=== PATIENT | female | born 1950 | race African-American/Black ===

== ENCOUNTER 2016-11-22 21:51 | Observation (INO) ==
[2016-11-22 23:09] LABS: MANUAL DIFF NEEDED? NO
[2016-11-22 23:11] LABS: BASO% 0.5 % (0.0-0.8); EOS# 0.25 X1000 (0.0-0.7); EOS% 3.4 % (0.0-10.0); HEMATOCRIT 39.6 % (37.0-47.0); HEMOGLOBIN 13.1 g/dL (12.0-16.0); IMM GRAN# 0.02 X1000 (0.0-0.04); IMM GRAN% 0.3 % (0.0-0.5); LYMPH# 1.36 X1000 (1.2-3.4); LYMPH% 18.3 % (20.5-51.1); MCH 31.4 PG (27-31); MCHC 33.1 g/dL (33-37); MONO# 0.47 X1000 (0.11-0.59); MONO% 6.3 % (1.7-9.3); MPV 10.9 FL (7.4-10.4); NEUT% 71.2 % (42.2-75.2); PLT 342 X1000 (130-400); RBC 4.17 XMIL (4.2-5.4)
[2016-11-22 23:26] LABS: ALBUMIN 4.2 g/dL (3.5-5.0); CALCIUM 8.3 mg/dL (8.8-10.2); POTASSIUM 3.6 mmol/L (3.5-5.1); TOTAL BILIRUBIN 0.33 mg/dL (0.20-1.00); TOTAL PROTEIN 7.6 g/dL (6.3-8.3)
--- NOTE | 2016-11-22 23:43 | PROVIDER DOCUMENTATION ---
This chart was entered by Alyce Hooks Scribe, acting as scribe for Rudolph Eid MD. HPI-Syncope/Dizziness - General Chief Complaint: Near Syncope Stated Complaint: syncope Time Seen by Provider: 11/22/16 21:59 Source: patient Allergies/Adverse Reactions: Patient Allergies Allergy/AdvReac Type Severity Reaction Status Date / Time egg Allergy Severe SWELLING Verified 11/22/16 23:02 Penicillins Allergy Mild ITCHING Verified 11/22/16 23:02 Sulfa (Sulfonamide Allergy Mild ITCHING Verified 11/22/16 23:02 Antibiotics) prednisone AdvReac Mild "softens Verified 11/22/16 23:02 bones" Home Medications: Home Medication List Medication Instructions Recorded Confirmed Last Taken Type Aspirin 325 mg PO QAM 12/15/12 11/19/16 11/18/16 09:00 History Calcium Carbonate/Vitamin D3 1 each PO TID 12/15/12 11/19/16 11/18/16 19:00 History [Calcarb 600 W-Vitamin D Tab] Carvedilol [Coreg] 25 mg PO BID 12/15/12 11/19/16 11/18/16 19:00 History Citalopram [Celexa] 20 mg PO QHS 12/15/12 11/19/16 11/18/16 19:00 History Clopidogrel [Plavix] 75 mg PO QAM 12/15/12 11/19/16 11/18/16 09:00 History Famotidine 40 mg PO BID 12/15/12 11/19/16 11/18/16 19:00 History Ferrous Sulfate 325 mg PO TID 12/15/12 11/19/16 11/18/16 19:00 History Hydralazine HCl 25 mg PO Q8H 12/15/12 11/19/16 11/18/16 19:00 History Levothyroxine Sodium [Levothroid] 150 mcg PO DAILY 12/15/12 11/19/16 11/18/16 09 :00 History Metformin HCl [Glucophage Xr] 500 mg PO TID 12/15/12 11/19/16 11/18/16 19:00 History Isosorbide Dinitrate [Isordil] 30 mg PO TID 12/18/12 11/19/16 11/18/16 19:00 History Cholecalciferol (Vitamin D3) 1,000 unit PO DAILY 04/06/13 11/19/16 11/18/16 09: 00 History [Vitamin D3] Magnesium Oxide 400 mg PO TID 04/06/13 11/19/16 11/18/16 19:00 History Budesonide/Formoterol Fumarate 10.2 gm IH BID 02/02/15 11/19/16 05/08/16 History [Symbicort 160-4.5 Mcg Inhaler] Hydrochlorothiazide 12.5 mg PO DAILY 02/02/15 11/19/16 11/18/16 09:00 History Irbesartan [Avapro] 300 mg PO DAILY 02/02/15 11/19/16 11/18/16 19:00 History Methocarbamol [Robaxin-750] 500 mg PO Q4H PRN PRN 02/02/15 11/19/16 05/08/16 History Albuterol [Albuterol Neb] 2.5 mg INH [id number] #0 neb 02/06/15 11/19/16 05/08/16 Rx Docusate Sodium [Colace] 100 mg PO BID #0 capsule 02/06/15 11/19/16 11/18/16 09: 00 Rx Hydrocodone/Acetaminophen [[place] 1 - 2 each PO Q4-6H PRN PRN #50 02/06/1511/18/16 19:00 Rx 10-325 Tablet] tablet Gabapentin 400 mg PO TID 05/09/16 11/19/16 11/18/16 19:00 History Alprazolam [Xanax] 0.5 mg PO BID PRN #10 tablet 11/19/16 Unknown Rx - History of Present Illness-Syncope/Dizzy Nature of Presenting Problem: 66 Y/O F presents to ED with Near Syncope. Pt states that that she had a near syncopal episode this evening, states she went to got to the store P to get something to eat after not eating for the last 4 days. States she been depressed and had an anxiety attack on Monday and states right before the near syncopal episode that her vision got blurry, and N. Pt states that her back and hip hurt from the fall. Prior Episodes: reports: no prior history Onset/Duration: reports: this evening Timing: reports: still present Position/Activity at time of episode: reports: sitting Symptoms prior to episode: reports: visual disturbance, nausea/vomiting Context: reports: almost passed out Loss of Consciousness: no loss of consciousness Location of injury. (If syncope resulted in an injury.): reports: none Current Symptoms: reports: nausea. denies: chills, vomiting, blurred vision, lightheaded Review of Systems - Adult - REVIEW OF SYSTEMS - ADULT Constitutional: denies: chills, fever Eyes: reports: no symptoms reported Ears, Nose, Mouth & Throat: reports: no symptoms reported Cardiovascular: reports: no symptoms reported Respiratory: denies: cough, shortness of breath Gastrointestinal: reports: nausea. denies: abdominal pain, diarrhea, vomiting Genitourinary: reports: no symptoms reported Musculoskeletal: reports: back pain, muscle aches Integumentary: reports: no symptoms reported Neurological: reports: no symptoms reported Psychiatric: reports: no symptoms reported Endocrine: reports: no symptoms reported Hematologic/Lymphatic: reports: no symptoms reported Allergic/Immunologic: reports: no symptoms reported All Other Systems: Reviewed and Negative Past History - Adult - PAST MEDICAL HISTORY-ADULT Review of Records: reports: Old Records Reviewed, Nursing Assessment Review, Medications Reviewed, Social history reviewed & non-contributory. Major Childhood Illnesses: reports: denies history Cardiovascular: reports: cardiac disease, HTN, hyperlipidemia, ND Respiratory: denies: asthma, COPD Gastrointestinal: reports: denies history. denies: cholelithiasis, Crohn's Obstetrical/Gynecological: reports: denies history Genitourinary: reports: kidney disease Musculoskeletal: reports: arthritis Neurological: reports: denies history Endocrine/Immune: reports: Diabetes - PRIOR SURGERIES/PROCEDURES Surgical/Procedure History: reports: orthopedic (extremity), joint replacement. denies: cholecystectomy - SOCIAL HISTORY Smoking: quit greater than 1 year Alcohol Use Frequency: never Living Situation: family Physical Exam-General - CONSTITUTIONAL General Appearance: alert, no apparent distress, obese - EYES Eyes: PERRL/EOMI, pink conjunctivae - HEAD, EARS, NOSE, MOUTH & THROAT HENMT: normocephalic/atraumatic, moist mucous membranes, normal ENT inspection, TMs normal, pharynx normal - NECK Neck: non-tender, full range of motion, supple, normal inspection - RESPIRATORY Respiratory: chest non-tender, lungs clear, normal breath sounds - CARDIOVASCULAR Cardiovascular: bradycardia - GASTROINTESTINAL (ABDOMEN) Abdominal Exam: normal bowel sounds, non tender, soft - MUSCULOSKELETAL Extremity: other (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) - SKIN Integumentary: normal color, normal turgor, warm/dry - PSYCHIATRIC Psych/Mental Status: normal mood/affect, normal thought content, normal thought process Progress - PLAN OF CARE/RESULTS Progress/Plan/Lab Results: Vital Signs - 8 hr 11/22/16 22:10 11/22/16 22:55 Pulse Rate 52 L 51 L Respiratory Rate 15 16 Blood Pressure 111/59 O2 Sat by Pulse Oximetry 100 100 Laboratory Results - last 24 hr 11/22/16 11/22/16 11/22/16 22:33 22:33 22:33 WBC 7.42 RBC 4.17 L Hgb 13.1 Hct 39.6 MCV 95.0 MCH 31.4 H MCHC 33.1 RDW Std Deviation 12.5 Plt Count 342 MPV 10.9 H Immature Gran % (Auto) 0.3 Neut % (Auto) 71.2 Lymph % (Auto) 18.3 L [place] % (Auto) 6.3 Eos % (Auto) 3.4 Baso % (Auto) 0.5 Immature Gran # (Auto) 0.02 Neut # (Auto) 5.28 Lymph # (Auto) 1.36 [place] # (Auto) 0.47 Eos # (Auto) 0.25 Baso # (Auto) 0.04 Sodium 143 Potassium 3.6 Chloride 99 Carbon Dioxide 29 Anion Gap 15 BUN 17 Creatinine 1.2 H Estimated GFR/1.73 m2 55 BUN/Creatinine Ratio 14 Glucose 125 H Calculated Osmolality 288 Calcium 8.3 L Total Bilirubin 0.33 AST 20 ALT 11 Alkaline Phosphatase 94 Troponin T Total Protein 7.6 Albumin 4.2 Globulin 3.4 Albumin/Globulin Ratio 1.2 TSH 3.09 11/22/16 22:33 WBC RBC Hgb Hct MCV MCH MCHC RDW Std Deviation Plt Count MPV Immature Gran % (Auto) Neut % (Auto) Lymph % (Auto) [place] % (Auto) Eos % (Auto) Baso % (Auto) Immature Gran # (Auto) Neut # (Auto) Lymph # (Auto) [place] # (Auto) Eos # (Auto) Baso # (Auto) Sodium Potassium Chloride Carbon Dioxide Anion Gap BUN Creatinine Estimated GFR/1.73 m2 BUN/Creatinine Ratio Glucose Calculated Osmolality Calcium Total Bilirubin AST ALT Alkaline Phosphatase Troponin T < 0.010 Total Protein Albumin Globulin Albumin/Globulin Ratio TSH Orders Category Date Time Status CBC WITH ELECTRONIC DIFF [HEME] Stat Lab 11/22/16 22:33 Completed CMP [COMPREHENSIVE METABOLIC PANEL] [CHEM] Stat Lab 11/22/16 22:33 Completed TROPONIN T Stat Lab 11/22/16 22:33 Completed TSH Stat Lab 11/22/16 22:33 Completed EKG [EKG] Stat Ther 11/22/16 21:59 Ordered Result Diagrams: 11/22/16 22:33 11/22/16 22:33 - EKG 1 Time of EKG reading by physician:: 22:12 EKG Read and Signed by:: Rudolph Eid EKG Interpretation (*Must complete 3 of following elements*): Abnormal Rate: 48 Rhythm: Sinus bradycardia Comments: Abnormal ECG - CONSULTS/PCP/HOSPITALIST Notification #1 *Consult/PCP/Hospitalist*: Time Discussed: 23:43 Reason/Comments: Admit Consult Disposition: Admit (Admit Accepted) Departure - Departure Time of Disposition Decision: 23:42 DIAGNOSIS: Near syncope, Bradycardia Disposition: ADMITTED INPATIENT 09 Certified Medical Emergency: Emergent Condition: Fair - Critical Care Note This patient required my direct & personal management of CC.: No This chart was documented by the indicated scribe, (Alyce Hooks Scribe) and accurately reflects the services I performed and decisions made by me, Rudolph Eid MD, as attested by the provider's signature.
[2016-11-22] MEDS ORDERED: NORCO-7.5 PO ONE (23:44)
--- NOTE | 2016-11-23 00:51 | HISTORY AND PHYSICAL ---
CHIEF COMPLAINT: Nearly passed out. HISTORY OF PRESENTING ILLNESS: This is a 66-year-old female with a history of hypertension, diabetes mellitus type 2, coronary artery disease, and asthma, who presented to the emergency department after she had an episode where she got too weak and nearly passed out. The patient states that she was driving along, and then all of a sudden she felt dizzy. She pulled over to a gas station and called her [id number]. When her [id number] arrived and tried to get her out of the car, she felt more dizzy, and nearly passed out. Subsequently, the patient was brought to the emergency department. When the patient was evaluated, found to be bradycardic. It seems that it could be related to her medication. However, due to her symptoms, it was thought that we will place her for observation for further evaluation and management. At the time of my examination, she denied any headache, vision changes, fever, chills, chest pain, shortness of breath, hemoptysis, or weight changes. States that she just does not feel well. PAST MEDICAL HISTORY: Includes hypertension, diabetes mellitus type 2, coronary artery disease, MS, asthma. PAST SURGICAL HISTORY: Right hip replacement, bilateral knee replacements, thyroidectomy. ALLERGIES: Penicillin, sulfa, prednisone, and eggs. CURRENT MEDICATIONS: As listed in the MAR. SOCIAL HISTORY: She denies any history of smoking. Admits to social alcohol use. Denies any illicit drug use. FAMILY HISTORY: No history of coronary disease. REVIEW OF SYSTEMS: Twelve point review of systems listed as in HPI. Other systems all negative. PHYSICAL EXAMINATION: GENERAL: Cooperative, friendly female. She is resting comfortably now. VITAL SIGNS: Pulse 52 respirations 15, blood pressure 111/59. HEENT: Atraumatic, normocephalic. Extraocular movements intact. PERRLA. NECK: No masses. CHEST: Clear to auscultation. CARDIOVASCULAR: Regular rate and rhythm. ABDOMEN: Soft, obese. Positive bowel sounds. EXTREMITIES: No edema. NEUROLOGIC: She is awake, alert, oriented x3. GENITOURINARY: No bladder distention. SKIN: Warm. LABORATORIES AND STUDIES: WBC 7.42, hemoglobin 13.1, hematocrit 39.6, platelets 342,000. Sodium 143, potassium 3.6, chloride 99, CO2 29, BUN is 17, creatinine is 1.2, glucose is 125. ASSESSMENT: This is a 66-year-old female with a history of hypertension, diabetes mellitus type 2, coronary artery disease, and asthma, who apparently had presented to the emergency department due to the patient had an episode where she felt dizzy and passed out. As per patient, she was driving along when these symptoms occurred, and when she tried to get out of her car, she felt dizzy and nearly fell to the floor. She was found to be bradycardic, and due to her presenting symptoms, it was thought that she would need hospitalization for further evaluation and management. 1. Near syncope. 2. Symptomatic bradycardia. 3. Diabetes mellitus type 2. 4. Hypertension. PLAN: 1. We will admit patient to medical floor with telemetry. 2. We will check orthostatic blood pressure and pulse. 3. We will check an echocardiogram. 4. We will consult Cardiology. 5. We will hold her Coreg. 6. We will monitor blood glucose, put patient on sliding scale insulin regimen. 7. We will monitor blood pressure and resume antihypertensive agents. 8. We will put patient on deep venous thrombosis prophylaxis. 9. We will continue to follow and reassess. cc: Carlos Turcios MD
[2016-11-23] MEDS ORDERED: ZOFRAN IV PRN (01:50)
[2016-11-23] MEDS: NS 1,000 ML IV SCH ×2 (02:42→19:56)
--- NOTE | 2016-11-23 05:23 | EKG Report ---
Test Performed on : 11/22/2016 10:12:26 PM Test Reason : syncope Blood Pressure : / mmHG Vent. Rate : 048 BPM Atrial Rate : 048 BPM P-R Int : 152 ms QRS Dur : 080 ms QT Int : 512 ms P-R-T Axes : 046 -04 070 degrees QTc Int : 457 ms Sinus bradycardia. Nonspecific T wave abnormality Abnormal ECG When compared with ECG of 05-FEB-2015 14:25, Nonspecific T wave abnormality, worse in Lateral leads Unconfirmed Result
[2016-11-23] MEDS: HUMULIN R SUBQ SCH ×4 (06:13→21:45)
[2016-11-23] MEDS ORDERED: ASPIRIN PO SCH ×2 (09:00→14:16)
--- NOTE | 2016-11-23 09:36 | PROGRESS NOTE ---
DATE: 11/23/2016 SUBJECTIVE: The patient is not as dizzy today. I asked her about her dizziness and it felt like the whole world was spinning when she had to chain puller the car. I had her move her head back and forth and up and down today and it reproduced vertigo symptoms. She also said she felt like she was going to pass out at the time. She does not really describe lightheadedness. She was bradycardic but I looked back at the office notes lland she has been bradycardic for some time as we have had her on Coreg to control her blood pressure and because she has had a previous heart attack, as well as Coreg does prolong the life of diabetics in general. She was not hypotensive during any of this time and so I am not sure that the bradycardia is really causing the problem. Certainly since on 1 check her pulse rate was down to 48 we can back off of the Coreg in the future and if her blood pressure is too high try to control it with another medication. She is also on hydralazine for hypertension. At this time we are holding the Coreg and consultation has been made with cardiology and an echocardiogram was ordered. Since the patient has had a previous MN, I believe it is justified evaluating her heart status even though she had no chest pain. OBJECTIVE: Vital Signs: Blood pressure 153/83, pulse is down to 46 and had been 91 earlier, 56 before that. It is possible that she could have a sick sinus syndrome as well and if just backing off the Coreg does not help and the pulse rate gets lower, would have to consider whether she needs a pacemaker. HEENT: She does have fluid behind the left TM, just a little bit, and does get dizzy when she moves her head back and forth or up or down. Cannot see the right TM due to cerumen in the ear canal. Neck: Supple. Lungs: Clear to auscultation and percussion without rhonchi, rales, or wheezes. Heart: Regular rate and rhythm without murmurs, gallops, or friction rubs. Abdomen: Soft. Active bowel sounds. No organomegaly or tenderness. Neurological: Intact grossly. She does get dizzy when she moves her head back and forth. It is possible that she could have a sick sinus syndrome and has vertigo at the same time. We will evaluate this. I will start her on meclizine. I will restart her hydralazine since her blood pressure is going up. It is interesting that she had a pulse rate of 56, then 91, and then 46, that if the Coreg was wearing off one would think that her pulse rate would go up and not go up and then come back now. We will give this a little bit more time. Her oxygen saturation was 96%. ASSESSMENT: 1. Near syncope. 2. Bradycardia. 3. Benign postural vertigo. 4. Adult-onset diabetes mellitus. 5. Morbid obesity. 6. Coronary artery disease. 7. Status post MN. 8. Status post [place] spotted fever. PLAN: We will continue workup. cc: Haris Toribio Jr, MD MTDAdam
[2016-11-23] MEDS: VITAMIN D PO SCH (11:46)
[2016-11-23] MEDS: HYDROCHLOROTHIAZIDE PO SCH (11:46)
[2016-11-23] MEDS: GLUCOPHAGE XR PO SCH ×3 (11:46→19:03)
[2016-11-23] MEDS: NEURONTIN PO SCH ×3 (11:46→19:03)
[2016-11-23] MEDS: APRESOLINE PO SCH (11:47)
[2016-11-23] MEDS: SYNTHROID PO SCH (11:48)
[2016-11-23] MEDS: PLAVIX PO SCH (11:48)
[2016-11-23] MEDS: COLACE PO SCH ×2 (11:48→19:59)
[2016-11-23] MEDS: ANTIVERT PO SCH ×3 (11:48→19:03)
[2016-11-23] MEDS: CALTRATE 600 + D PO SCH ×3 (11:48→19:03)
[2016-11-23] MEDS: PEPCID PO SCH ×2 (11:48→19:59)
[2016-11-23] MEDS: MAG-OX PO SCH ×3 (11:48→19:04)
[2016-11-23] MEDS: FERROUS SULFATE PO SCH ×3 (11:49→19:03)
[2016-11-23] MEDS: ISORDIL PO SCH ×3 (11:49→19:02)
--- NOTE | 2016-11-23 15:16 | CONSULTATION ---
DATE OF CONSULTATION: 11/23/2016 INDICATION: Near syncope, bradycardia. HISTORY OF PRESENT ILLNESS: Ms. Hua is a 66-year-old black female with a history of hypertension, diabetes, and coronary disease. She previously followed with Dr. Jonna Montgomery, but has not seen anyone since her last office visit with him in February 2016. She presented for evaluation of lightheadedness. This occurred yesterday evening when she was in the car. She had apparently taken her evening medications about 30 minutes prior, per her usual schedule. She was driving around and became quite lightheaded and somewhat clammy. She never had a full loss of consciousness. She ended up calling her [id number] and eventually came in to the ER. She was found have heart rates in the 40s and 50s, which does not seem to be much different than her previous historical vital signs. She has not had any recent changes in her blood pressure medications. She did note a decrease in her Celexa and addition of some other unknown medication. She did not take that medication yesterday. She has reported very poor oral intake, specifically, very little solid food intake over the last 3 days. She says she just is not hungry. She is not having any overt episodes of nausea, vomiting, or diarrhea, and no abdominal pain to limit her intake. She relates this to a lot of stress she has been under lately, with breaking up with her boyfriend as well as 2 recent sudden deaths of close family/friends. She had an ER visit that was reportedly for a panic attack this past weekend. PAST MEDICAL HISTORY: 1. Significant for hypertension. 2. Coronary artery disease. Last cardiac catheterization was in December 2012. At that time, she had a 40% LAD lesion with diagonals with 30% to 40% disease. The circumflex had a 60% lesion and there was 30% to 40% disease in the right coronary. There was an AV branch off the right coronary that was occluded with some collateralization. EF on that study was 45-50. Ejection fraction on a nuclear scan in December 2012 was 64%. 3. Hypertension. 4. Diabetes. 5. Hyperlipidemia. 6. Reflux disease. 7. Hypothyroidism, status post thyroidectomy. 8. Morbid obesity. 9. History of [place] spotted fever. SOCIAL HISTORY: No history of tobacco use. Occasional alcohol use, but none recent. Denies any illicit drug use. FAMILY HISTORY: Negative for any early coronary disease. REVIEW OF SYSTEMS: A 10-system review of systems is negative except for those things mentioned in the HPI. PHYSICAL EXAMINATION: Vital Signs: She is afebrile. Her heart rates during this hospitalization have been predominantly in the 50s. She had 1 low of 46, and discussion with telemetry has shown that she has had occasional heart rates in the low 40s. During my examination today, her telemetry shows her heart rate in the low 60s. Blood pressure 153/83. General: She is somewhat anxious. She tears up during the history. HEENT: Oropharynx is moist. Normal dentition. Eye examination shows pink conjunctivae and white sclerae. Neck: Examination shows no obvious thyromegaly or thyroid tenderness. Cardiovascular: She is in a regular rate and rhythm. She has no obvious murmurs. She has no S3. She has no lower extremity edema. Chest: Clear bilaterally. She has no increased work of breathing. Abdomen: Soft, nontender, and nondistended. She has no obvious organomegaly. Skin: Warm and dry throughout, without any rashes. Neurological: She is moving all extremities well. Cranial nerves 2-12 are intact, without any sensation deficits. Psychiatric: She is alert, oriented, and pleasant. She has normal mood and affect. PERTINENT DATA: EKG shows sinus bradycardia at 48 beats per minute. No signs of AV block. She has a normal [place] interval, normal QRS. No signs of ischemic changes or infarct. Her laboratory data showed white count of 7.4, hematocrit 39.6, and platelet count is 342,000. Sodium is 143, potassium 3.6, BUN 17, creatinine 1.2. Cardiac enzymes are negative. TSH is normal. ASSESSMENT: 1. Near syncope. 2. Relative bradycardia. PLAN: I believe the most likely reason for her near syncopal episode is likely secondary to poor oral intake over the last 72 hours. This is likely spurred on by the significant amount of stress she has been dealing with over the last several weeks. Very likely that this poor oral intake has magnified the effect of her medications; however, she has had frequent heart rates in the 50s over the last several vital sign checks during this hospitalization and previous. I think it is reasonable to hold her beta-laura, but likely we could reinstitute that at a lower dose in the future and consider heart rate monitoring at home for further evaluations. Her echocardiogram was checked and we are awaiting the final results. cc: MD Haris Bush Jr, MD
[2016-11-23] MEDS: ATIVAN PO PRN (16:43)
[2016-11-23] MEDS ORDERED: CELEXA PO SCH (21:00)
[2016-11-24] MEDS: ATIVAN PO PRN ×3 (00:28→18:07)
[2016-11-24] MEDS: APRESOLINE PO SCH ×3 (00:28→10:00)
[2016-11-24] MEDS: HUMULIN R SUBQ SCH ×3 (06:15→17:57)
[2016-11-24] MEDS: NS 1,000 ML IV SCH ×2 (06:15→06:50)
[2016-11-24 06:33] LABS: BASO% 0.4 % (0.0-0.8); EOS# 0.16 X1000 (0.0-0.7); EOS% 2.9 % (0.0-10.0); HEMATOCRIT 36.8 % (37.0-47.0); HEMOGLOBIN 12.1 g/dL (12.0-16.0); LYMPH# 1.17 X1000 (1.2-3.4); LYMPH% 21.1 % (20.5-51.1); MANUAL DIFF NEEDED? NO; MCH 31.4 PG (27-31); MCHC 32.9 g/dL (33-37); MCV 95.6 FL (81-99); MONO# 0.39 X1000 (0.11-0.59); NEUT% 68.6 % (42.2-75.2); PLT 284 X1000 (130-400); RBC 3.85 XMIL (4.2-5.4)
[2016-11-24 07:22] LABS: AGAP 15; BUN 13 mg/dL (8-22); CALCIUM 7.7 mg/dL (8.8-10.2); CHLORIDE 99 mmol/L (98-107); COSMO 280; POTASSIUM 3.3 mmol/L (3.5-5.1); SODIUM 140 mmol/L (136-145); TCO2 26 mmol/L (25-35)
[2016-11-24] MEDS ORDERED: KLOR-CON PO SCH (09:00)
[2016-11-24] MEDS: SYNTHROID PO SCH (09:57)
[2016-11-24] MEDS: VITAMIN D PO SCH (09:57)
[2016-11-24] MEDS: FERROUS SULFATE PO SCH ×3 (09:57→18:08)
[2016-11-24] MEDS: ANTIVERT PO SCH ×3 (09:57→18:07)
[2016-11-24] MEDS: PEPCID PO SCH (09:58)
[2016-11-24] MEDS: HYDROCHLOROTHIAZIDE PO SCH (09:58)
[2016-11-24] MEDS: MAG-OX PO SCH ×3 (09:58→18:08)
[2016-11-24] MEDS: NEURONTIN PO SCH ×3 (09:59→18:08)
[2016-11-24] MEDS: ISORDIL PO SCH ×3 (09:59→18:07)
[2016-11-24] MEDS: GLUCOPHAGE XR PO SCH ×3 (10:00→18:07)
[2016-11-24] MEDS: COLACE PO SCH (10:00)
[2016-11-24] MEDS: PLAVIX PO SCH (10:00)
[2016-11-24] MEDS: CALTRATE 600 + D PO SCH ×3 (10:00→18:07)
--- NOTE | 2016-11-24 13:37 | ECHO REPORT ---
ORDER DATE: 11/23/2016 INTERPRETING PHYSICIAN: Dr. Prasad REQUESTING PHYSICIAN: CLINICAL INDICATIONS: A 66-year-old female with syncope, smoker, weight 250 pounds. M-MODE MEASUREMENTS: Right ventricle: 3.1 cm. Left ventricle end diastole: 4.5 cm. Left ventricle end systole: 2.7 cm. Posterior wall: 1.1 cm. Interventricular septum: 1.2 cm. Left atrium: 4.0 cm. Aortic root: 2.9 cm. SUMMARY OF 2-DIMENSIONAL IMAGING: The left ventricular systolic function is normal. Ejection fraction is estimated at 66%. No wall motion abnormality is noted. Right ventricle mildly enlarged, shows normal function. Pulmonary valve shows a mild degree of regurgitation. Aortic valve has 3 cusps. Color flow mapping is unremarkable. The mitral valve opens normally. Color flow mapping indicates a trivial degree of regurgitation. Pulse wave Doppler of mitral inflow shows mild reversal of the E and the A wave. Tissue Doppler of septal and lateral mitral annulus averages 7 cm per second. Pulmonary venous flow is normal. There is no diastolic dysfunction. Tricuspid valve shows a very mild degree of regurgitation. The inferior vena cava is not dilated. Pulmonary pressure estimated at 41 mmHg. There is no pericardial effusion, masses or thrombus. IMPRESSION: In summary, this study shows: 1. Normal left ventricular systolic function. Ejection fraction 66%. 2. Normal diastolic function. 3. Mild degree of mitral and pulmonic regurgitation. 4. Mild degree of tricuspid regurgitation with a pulmonary pressure of 41 mmHg. 5. No pericardial effusion, masses or thrombus. Clinical correlation recommended. cc: MD Carlos Barragan MD Roger H. Moss Jr, MD
--- NOTE | 2016-11-24 15:12 | PROGRESS NOTE ---
DATE: 11/24/2016 SUBJECTIVE: Ms. Hua reports she is doing a little better today. She thinks that she gets somewhat dizzy with the dosing of her hydralazine. Otherwise, she has not had any chest pain. PHYSICAL EXAMINATION: Vital Signs: She is afebrile. Heart rates in the 50s to 60s. Her blood pressure is 143/75. General: She is in no acute distress. Cardiovascular: She is in a regular rate and rhythm. She has no obvious murmurs. She has no S3. No lower extremity edema. Chest: Clear to auscultation bilaterally. She has no increased work of breathing. Abdomen: Soft, nontender, nondistended. She has no obvious organomegaly. Skin Exam: Warm and dry throughout. PERTINENT DATA: Her white count is 5.5, hematocrit 36.8, platelet count is 284. Sodium 140, potassium 3.3, BUN is 13, creatinine 0.7. ASSESSMENT: Episode of a near syncope likely related to poor oral intake for several days. PLAN: I would continue to hold beta laura for now. I have increased her hydrochlorothiazide to 25 and decreased her hydralazine to b.i.d. considering she thinks she associates this with the lightheaded spells. I would continue to monitor her blood pressure, but at this point, her telemetry has not seemed to show any evidence of significant arrhythmias to suggest an etiology of the episode and her echocardiogram is relatively unremarkable. Please contact us if we can be of further assistance with patient. cc: MD Haris Bush Jr, MD
[2016-11-24 15:55] VITALS: BP 163/66
[2016-11-24] MEDS ORDERED: APRESOLINE PO SCH (21:00)
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
[2016-11-25] MEDS ORDERED: HYDROCHLOROTHIAZIDE PO SCH (09:00)
== END 2016-11-24 18:17 | disposition home or self-care (01) ==
LOC: 3N 21:51 → ED 21:51 → SUATTDRO 11-23 01:38 → SUPCPDRO 11-23 01:38
PROVIDERS: ADMIT Emergency Medicine; ATTEND Emergency Medicine